=== PATIENT | male | born 1960 | race Caucasian/White ===

== ENCOUNTER → 2019-10-30 15:42 | Outpatient (CLI) | payer SELFPAY ==
[2019-10-30 14:51] VITALS: BMI 26.7
--- NOTE | 2019-10-30 15:46 | CDU_ITS ---
Reason For Study: Carotid stenosis Rt. Velocities/BP Lt. Velocities/BP Prox CCA 141.2/9.4 cm/sec. Prox CCA 106.7/40.8 cm/sec. Mid CCA 67.9/11.4 cm/sec. Mid CCA 100.1/36.4 cm/sec. Dist CCA 58.1/10.2 cm/sec. Dist CCA 83.3/32.1 cm/sec. Prox ECA 194.9/23.6 cm/sec. Prox ICA 312.2/92.6 cm/sec. Rt. Vert. 85.4/21.7 cm/sec. Mid ICA 397.4/112.1 cm/sec. Dist ICA 189.4/40.7 cm/sec. Lt. ICA/CCA = 4.00. Prox ECA 179.1/38.6 cm/sec. Right Extracranial There is heterogeneous, smooth atherosclerotic plaque noted in the right common carotid artery. The right internal carotid artery is occluded. There is heterogeneous, irregular atherosclerotic plaque noted in the right external carotid artery. Antegrade flow is noted in the right vertebral artery. Left Extracranial There is heterogeneous, irregular atherosclerotic plaque noted in the left common carotid artery. There is heterogeneous, irregular atherosclerotic plaque noted in the left internal carotid artery. There is heterogeneous, irregular atherosclerotic plaque noted in the left external carotid artery. Flow could not be demonstrated in the left vertebral artery. Procedure Carotid Duplex 11287. Prelim to [place]. Exam performed in department. Interpretation Summary Flow could not be demonstrated in the left vertebral artery. Occluded right internal carotid artery Less than 50% stenosis right external carotid artery but close to that range Patent and antegrade right vertebral Irregular calcific plaque with shadowing distal left common carotid and proximal left internal and external carotid arteries >70% stenosis left internal carotid (findings consistent with critical stenosis) <50% stenosis left external carotid Ordering Physician: Holden Wyatt Referring Physician: Holden Hudson Performed By: Leyda Brito RVT
--- NOTE | 2019-10-30 16:58 | CT_ITS ---
STUDY: CTA NECK WITH CONTRAST REASON FOR EXAM: Male, 59 years old. BILATERAL CAROTID STENOSIS RADIATION DOSAGE (If Supplied By Facility): CTDIvol = ( 17.90 ) mGy, DLP = ( 632.65 ) mGycm TECHNIQUE: CT angiography with multi-detector data acquisition was performed from the aortic arch to the skull base following intravenous administration of 100 ML ISOVUE 370. MIP images were reconstructed from the axial data set. Post-processing of the angiographic images was performed, with multiplanar reformation and 3D reconstruction. Individualized dose optimization techniques were used for this CT. COMPARISON: None. FINDINGS: AORTIC ARCH: Normal visualized aortic arch. Normal origins of the brachiocephalic, left common carotid, and left subclavian arteries. RIGHT CAROTID ARTERIES: There is atherosclerotic plaque formation of the common carotid artery, with diffuse narrowing of the common carotid artery. There is extensive atherosclerotic plaque formation with severe narrowing of the right carotid bulb . There is complete occlusion of the origin of the right internal carotid artery without demonstrated arterial flow. No flow is seen in the right internal carotid artery. Normal origin of the right external carotid artery (ECA). LEFT CAROTID ARTERIES: Normal left common carotid artery (CCA). There is extensive atherosclerotic plaque formation with moderate narrowing of the carotid bulb with a hemodynamically significant stenosis. There is moderate atherosclerotic plaque formation of the origin of the left internal carotid artery with an estimated stenosis of 50-69% stenosis. Normal visualized cervical portion of the left internal carotid artery. Normal origin of the left external carotid artery (ECA). VERTEBRAL ARTERIES: Both vertebral arteries are small and narrow, especially the left. CT/CTA Neck W/WO Contrast IMPRESSION: Severe right carotid bulb plaque with occlusion of the right ICA. Moderate calcified plaque of the left carotid bulb with moderate grade stenosis of the left ICA. Electronically Signed: Kash Mckee MD at 18:21 EST , Service support ,
[2019-10-30 17:13] LABS: Hematocrit 47.9 % (40-54); Hemoglobin 15.7 g/dL (13.0-16.5); Mean Corp Hgb Conc 32.8 g/dL (32-36); Mean Corpuscular Hgb 28.3 pg (27.0-32.0); Mean Corpuscular Volume 86.3 fL (80-94); Mean Platelet Vol. 8.3 fl (6.2-12.0); Platelet Count 306 K/mm3 (150-450); RBC Distribution Width CV 13.8 % (11.6-14.6); RBC Distribution Width SD 43.5 fl (35.1-43.9); Red Blood Count 5.55 M/mm3 (4.6-6.2); White Blood Count 11.1 K/mm3 (4.4-11.0)
[2019-10-30 17:33] LABS: International Normalized Ratio 1.9; Prothrombin Time (Protime)PT. 21.9 SECONDS (11.7-14.9)
[2019-10-30 17:40] LABS: ALB/GLOB Ratio 0.9 RATIO (0.9-2.4); AST(SGOT) 21 U/L (15-37); Alanine Aminotransfer ALT/SGPT 36 U/L (16-61); Albumin, Serum 3.6 g/dL (3.2-5.0); Alkaline Phosphatase 101 U/L (45-117); Anion Gap 3 (5-15); BUN 16 mg/dL (7-18); BUN/Creat Ratio 13.3 RATIO (10-20); Calcium,Total 9.1 mg/dL (8.5-10.1); Chloride 105 mmol/L (98-107); EST Glomerular Filtration Rate 65 mL/min (>60); Est Glom Filt Rate - Afr Amer 79 mL/min (>60); Globulin 3.9 g/dL (2.2-4.2); Glucose 137 mg/dL (74-106); Potassium 3.9 mmol/L (3.5-5.1); Protein, Total 7.5 g/dL (6.4-8.2); Sodium Level 137 mmol/L (136-145)
[2019-10-30 17:40] LABS: CREATININE FINGERSTICK 1.6 mg/dL (0.70-1.30)
[2019-10-30 17:58] LABS: Hemoglobin A1c 6.6 % (4.2-6.3)
== END ==
PROVIDERS: PCP Family Medicine; Referring Provider Surgery; Visit Provider Surgery
DX: I65.23 Occlusion and stenosis of bilateral carotid arteries (principal); K62.5 Hemorrhage of anus and rectum; K62.89 Other specified diseases of anus and rectum; E11.9 Type 2 diabetes mellitus without complications
CPT/HCPCS: 36415; 70498; 80053; 83036; 85027; 85610; 93880; Q9967

== ENCOUNTER 2019-11-13 08:30 | Day surgery (SDC) | payer SELFPAY ==
--- NOTE | 2019-10-30 04:27 | HP_ITS ---
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 Accompanied by: Is patient in pain?: No Allergies No Known Allergies Allergy (Unverified 10/30/19 14:53) Medications lisinopril 10 mg tablet 10 mg PO DAILY 10/30/19 [History Confirmed 10/30/19] warfarin 5 mg tablet 5 mg PO Q OTHER DAY 10/30/19 [History Confirmed 10/30/19] warfarin 7.5 mg tablet 7.5 mg PO Q OTHER DAY 10/30/19 [History Confirmed 10/30/19] [facility] Medical History Arthritis (Acute) Carotid stenosis (Acute) Diabetes (Acute) Rectal bleeding (Acute) Rectal pain (Acute) Hypertension (Chronic) Surgical History (Updated 10/30/19 @ 14:50 by Hetal Braxton) No history of previous surgery (Acute) Family History (Updated 10/30/19 @ 14:50 by Hetal Braxton) Mother Breast cancer Social History (Updated 10/30/19 @ 16:27 by Holden Wyatt MD) Smoking Status: Current every day smoker alcohol intake: never substance use type: does not use HPI HPI HPI: SILVINA GIL, is a 59 M who presents to the office today for HPI HPI Surgical H&P: Yes HPI: SILVINA GIL is a 59 M who presents to the office today for surgical consultation regarding a least a 1 year history of anal rectal pain and bleeding. The patient is referred by Dr. Holden Hudson and a written copy of my surgical consult and recommendations will be returned to him. Dr. Hudson was able to evaluate the patient and did not demonstrate any external hemorrhoids but thought that there was a large rectal polyp on digital exam. The patient has never had a colonoscopy. He has been medically noncompliant. He states that 10-15 maybe even 20 years ago he was seen by back vascular specialist at [facility] regarding occlusion of his left internal carotid artery and acute vision loss on the left. By report he was placed on Coumadin at that time. He is not had any follow-up according to him since that episode. He claims that his carotid occlusion was secondary to trauma neck injury. He has been a lifelong tobacco smoker at the rate of 1-1/2 pack/day. He denies myocardial infarction. He denies stroke. He has had weight loss recently. He claims that he has been having lower abdominal pain cramping and significant pain with defecation. Because of this he is cut down on eating. He has lost approximately 20 pounds in weight. He is type II diabetic. He himself has taken him off of metformin. He claims that he is still checking his blood sugars intermittently and he runs about 130. He claims that a recent hemoglobin A1c was approximately 6. He denies family history of colon polyps or colon cancer. His problem list includes atherosclerotic cardiovascular disease. He denies myocardial infarction. He is aware that he has a heart murmur but he does not recall ever having an echocardiogram. He has not had a cardiac stress test to his knowledge. ROS General General: Yes weight change and fatigue; no appetite, colon cancer, breast cancer or weakness HEENT HEENT: No difficulty swallowing, eye injury, eye surgery, swollen glands or hoarseness Endo Endocrine: Yes diabetes mellitus; no thyroid disease, thyroid cancer, Hair loss, heat intolerance or cold intolerance Skin Skin: No rash or changing moles Breast Breast: No left breast lump, right breast lump, nipple discharge, breast pain, abnormal mammogram, abnormal US or breast enlargement Musc Musculoskeletal: Yes arthritis; no back problems, rheumatoid arthritis, gout or joint pain Cardio Cardiovascular: Yes murmur and high blood pressure; no pacemaker, heart disease, atrial fibrillation, heart attack, heart stent, palpitations, shortness of breat with exertion or chest pain Psych Psychiatric: No depression, anxiety or hearing voices Resp Respiratory: No shortness of breath, No sleep apnea, Yes cough, No COPD, No asthma, No emphysema, No wheezing Gastro Gastrointestinal: Yes abdominal pain, No nausea or vomiting, No diarrhea, No constipation, Yes blood in stool, No acid reflux, No hemorrhoids, No ulcers, No gallbladder problem, No black,tarry stools Noé Hematologic: Yes blood thinners, No blood disorders, No bleeding, No anemia, No blood clots Neuro Neurologic: No system reviewed and no additional complaints, except as docu, No as per HPI, No abnormal walking, No abnormal hearing, No abnormal movements, No abnormal speech, No behavioral changes, No burning sensations, No confusion, No seizure-like activity, No unsteadiness, No dizziness, No localized weakness, No frequent falls, No headache(s), No lack of coordination, No loss of vision, No memory loss, No numbness, No other visual disturbances, No radiating pain, No restless legs, No sensory deficit, No fainting, No tingling, No tremor(s), No weakness, No other Exam Const General: comfortable, no acute distress Nutritional Appearance: average body habitus Orientation: alert, awake Other: Patient appears to be much older than stated age, Heavy odor of tobacco Heavy staining of tobacco on his glynn HENMT Head: normal to inspection Neck Other: 2+ right carotid. 1+ left carotid. I do not detect bruit. Bilateral radial and brachials are 3+ Chest Breast Palpation: No nipple discharge Resp Other: Clear apices bilaterally, diminished respiratory excursion Cardio Rate: regular rate Rhythm: regular rhythm Heart Sounds: murmur Other: 2/6 systolic ejection murmur GI Other: Soft, distended, bowel sounds present nonspecific, minimal tenderness to deep palpation left lower quadrant, no mass, no guarding, not expansile or pulsatile, no bruits noted Musc Cervical Spine: other (Cervical kyphosis) Skin Other: No open wounds noted Neuro Cognition: normal cognition Extrem General: no calf tenderness bilaterally Psych Affect: normal affect Assessment & Plan Problems 1. Carotid occlusion, right I65.21 2. Carotid stenosis, left I65.22 3. Rectal bleeding K62.5 4. Tobacco abuse Z72.0 5. Type 2 diabetes mellitus E11.9 6. Anticoagulated on Coumadin Z79.01 7. Heart murmur R01.1 Plan My initial plan was to obtain carotid duplex imaging based upon his history and risk. I then proposed for him a colonoscopy with possible biopsy or polypectomy is indicated. By report he has a polypoid rectal mass. I did not perform a rectal exam today as a would perform that during the colonoscopy. I tentatively was going to hold the patient's Coumadin for 3 days prior to intervention performed the procedure with monitored anesthesia care. I did advise him that we would want to obtain carotid duplex imaging preprocedure. Pending the results of the colonoscopy I would then advise whether his cardiac murmur would need to have preoperative evaluation with echocardiogram. Subsequent to the patient's office visit today we did pursue carotid duplex imaging. Preliminary report suggests complete occlusion of the right carotid and greater than 80% stenosis of the left internal carotid. This report will be interpreted later today. Based upon this information he will not have his Coumadin stopped at this time. He will have his colonoscopy which was tentatively scheduled for November 03 canceled at this time. We will check his laboratory including a complete metabolic profile and a CBC and an INR and hemoglobin A1c. If his renal function permits we will proceed with a CTA of the carotids. The patient then will be offered the opportunity to return to [facility] where he had his initial consultation or pending the findings of the CTA may potentially offer him surgical intervention with a left carotid endarterectomy locally. Unfortunately this now supersedes his rectal findings. I appreciate the opportunity of assisting with his surgical care. We will try to assist with additional diagnosis and treatment recommendations as possible. Cc: Dr. Holden Wyatt M.D., F.A.C.S. Orders Orders: Colonoscopy Today K62.5, K62.89 Comprehensive Metabolic Profil Today E11.9, K62.89 Hemoglobin A1c Today E11.9 Prothrombin Time w/INR Today I65.23 CBC-Complete Blood Cnt No Diff Today K62.5 Carotid Duplex Ultrasound Today I65.23 CTA Neck W/WO Contrast Today I65.21, I65.22 Coding Level of Care Code 91287 Diagnoses Carotid occlusion, right I65.21 Carotid stenosis, left I65.22 Rectal bleeding K62.5 Tobacco abuse Z72.0 Type 2 diabetes mellitus E11.9 ??Diabetes mellitus skilled nursing insulin use: without medical terminologist use Anticoagulated on Coumadin Z79.01 Heart murmur R01.1 10/30/19 1627 <Electronically signed by Holden soto MD> Date _ Holden Wyatt MD
[2019-10-30 14:51] VITALS: BMI 26.7
[2019-11-13] VITALS (9 sets, daily range): BP systolic 100–134; BP diastolic 70–81; PULSE 63–83; RESP 16–18; TEMP 36.4–36.9; O2SAT 94–100; BMI 26.1
[2019-11-13 09:01] LABS: Prothrombin Time Fingerstick 16.1 SEC (11.9-14.4)
[2019-11-13] MEDS: Lactated Ringers 1,000 ML 100 ML IV (09:16)
[2019-11-13 09:30] LABS: Bedside Glucose 133 mg/dL (70-110)
--- NOTE | 2019-11-13 10:28 | OP.CCLET_ITS ---
11/13/2019 [address]en Hudson [address] [address] Re : Colonoscopy procedure for Kendrick Butt Dear Dr. Hudson This procedure was performed on Wednesday, November 13, 2019. My impressions and recommendations are as follows: Impressions : - Non-thrombosed internal hemorrhoids and internal hemorrhoids that prolapse with straining, but require manual replacement into the anal canal (Grade III) found on digital rectal exam. Small hemorrhoidal stalk that can be partially prolapsed, non bleeding and not source of bleeding or weight loss - Diverticulosis in the sigmoid colon and in the descending colon. - The examination was otherwise normal. - No specimens collected. Recommendations : - Discharge patient to home. - Resume previous diet. - Continue present medications. - Repeat colonoscopy in 10 years for screening purposes. - Return to my office in 1 week to discuss carotid and treatment plans My findings are described in the full procedure note, which is enclosed. If I can be of further assistance, please feel free to contact me at Doctor phone number(s): Work: . Sincerely, Holden Wyatt MD 11/13/2019 10:27:53 AM This report has been signed electronically.
--- NOTE | 2019-11-13 10:28 | OP.COLON_ITS ---
Patient Name: Kendrick Butt Procedure Date: 11/13/2019 9:58 AM Date of : 1960 Age: 59 Procedure: Colonoscopy Indications: Rectal bleeding Providers: Holden Wyatt MD Referring MD: Holden Hudson Medicines: See the Anesthesia note for documentation of the administered medications Patient Profile: Last Colonoscopy: none. The patient's first colonoscopy is today. Complications: No immediate complications. Procedure: Pre-Anesthesia Assessment: - Prior to the procedure, a History and Physical was performed, and patient medications and allergies were reviewed. The patient's tolerance of previous anesthesia was also reviewed. The risks and benefits of the procedure and the sedation options and risks were discussed with the patient. All questions were answered, and informed consent was obtained. Prior Anticoagulants: The patient has taken Coumadin (warfarin), last dose was 3 days prior to procedure. ASA Grade Assessment: III - A patient with severe systemic disease. After reviewing the risks and benefits, the patient was deemed in satisfactory condition to undergo the procedure. After I obtained informed consent, the scope was passed under direct vision. Throughout the procedure, the patient's blood pressure, pulse, and oxygen saturations were monitored continuously. The Colonoscope was introduced through the anus and advanced to the cecum, identified by appendiceal orifice and ileocecal valve. The colonoscopy was performed without difficulty. The patient tolerated the procedure well. The quality of the bowel preparation was good. The ileocecal valve and the appendiceal orifice were photographed. Scope In: 10:05:47 AM Scope Withdrawal Time 0 hours 6 minutes 17 seconds Scope Out: 10:19:10 AM Total Procedure Duration Time 0 hours 13 minutes 23 seconds Findings: The digital rectal exam findings include non-thrombosed internal hemorrhoids and internal hemorrhoids that prolapse with straining, but require manual replacement into the anal canal (Grade III). Scattered diverticula were found in the sigmoid colon and descending colon. The exam was otherwise without abnormality. Impression: - Non-thrombosed internal hemorrhoids and internal hemorrhoids that prolapse with straining, but require manual replacement into the anal canal (Grade III) found on digital rectal exam. Small hemorrhoidal stalk that can be partially prolapsed, non bleeding and not source of bleeding or weight loss - Diverticulosis in the sigmoid colon and in the descending colon. - The examination was otherwise normal. - No specimens collected. Recommendation: - Discharge patient to home. - Resume previous diet. - Continue present medications. - Repeat colonoscopy in 10 years for screening purposes. - Return to my office in 1 week to discuss carotid and treatment plans Procedure Code(s): --- Professional --- 20970, Colonoscopy, flexible; diagnostic, including collection of specimen(s) by brushing or washing, when performed (separate procedure) Diagnosis Code(s): --- Professional --- K64.2, Third degree hemorrhoids K62.5, Hemorrhage of anus and rectum K57.30, Diverticulosis of large intestine without perforation or abscess without bleeding CPT copyright 2017 [employer]. All rights reserved. The codes documented in this report are preliminary and upon risk reduction counselor review may be revised to meet current compliance requirements. Holden Wyatt MD 11/13/2019 10:27:53 AM This report has been signed electronically. Number of Addenda: 0 Note Initiated On: 11/13/2019 9:58 AM
== END 2019-11-13 11:07 | disposition home or self-care (01) ==
LOC: EN 08:42 → AC 08:52
PROVIDERS: PCP Family Medicine; Referring Provider Family Medicine; Visit Provider Surgery
PROC: 0DJD8ZZ Inspection of Lower Intestinal Tract, Via Natural or Artificial Opening Endoscopic (ICD-10-PCS; CPT 45378; principal; 2019-11-13 09:40)
DX: K64.2 Third degree hemorrhoids (principal); K62.5 Hemorrhage of anus and rectum; K57.30 Diverticulosis of large intestine without perforation or abscess without bleeding; I25.10 Atherosclerotic heart disease of native coronary artery without angina pectoris; I65.23 Occlusion and stenosis of bilateral carotid arteries; I10 Essential (primary) hypertension; E11.9 Type 2 diabetes mellitus without complications; R01.1 Cardiac murmur, unspecified; F17.200 Nicotine dependence, unspecified, uncomplicated; Z79.01 Long term (current) use of anticoagulants; Z91.19 Patient's noncompliance with other medical treatment and regimen
CPT/HCPCS: 45378; 36416; 82962; 85610; J7120; J2405

== ENCOUNTER → 2020-04-07 13:00 | Outpatient (CLI) | payer SELFPAY ==
[2020-03-29 13:14] VITALS: BMI 26.4
--- NOTE | 2020-04-07 13:01 | CDU_ITS ---
Reason For Study: Carotid stenosis Rt. Velocities/BP Lt. Velocities/BP Prox CCA 110.1 cm/sec. Prox CCA 98.6/32.3 cm/sec. Mid CCA 65.2/10.2 cm/sec. Mid CCA 96.2/33.5 cm/sec. Dist CCA 46.5/10.2 cm/sec. Dist CCA 79/23.7 cm/sec. Prox ECA 160.9/9.4 cm/sec. Prox ICA 299.3/99.2 cm/sec. Rt. Vert. 51.3/14.5 cm/sec. Mid ICA 362/95.3 cm/sec. Dist ICA 246.8/83.7 cm/sec. Lt. ICA/CCA = 3.76. Prox ECA 187.3/47.4 cm/sec. Lt. Vert. 913/24.9 cm/sec. Right Extracranial There is homogeneous, smooth atherosclerotic plaque noted in the right common carotid artery. The right internal carotid artery is occluded. There is heterogeneous, irregular atherosclerotic plaque noted in the right external carotid artery. Antegrade flow is noted in the right vertebral artery. Left Extracranial There is heterogeneous, irregular atherosclerotic plaque noted in the left common carotid artery. There is heterogeneous, irregular atherosclerotic plaque noted in the left internal carotid artery. There is intimal thickening but no significant atherosclerotic plaque noted in the left external carotid artery. Antegrade flow is noted in the left vertebral artery. Procedure Carotid Duplex 41991. Exam performed in department. Interpretation Summary Chronic occlusion right internal carotid artery <50% stenosis right external carotid >70% stenosis left internal carotid <50% stenosis left external carotid Patent and antegrade bilateral vertebral arteries with increased velocity on the left at 91.3 cm/s peak systolic flow Findings appear similar to the previous examination of October 30, 2019 Ordering Physician: Holden Wyatt Referring Physician: Holden Hudson Performed By: Willinger, Leyda, RVT
== END ==
PROVIDERS: PCP Family Medicine; Referring Provider Surgery; Visit Provider Surgery
DX: I65.23 Occlusion and stenosis of bilateral carotid arteries (principal)
CPT/HCPCS: 93880

== ENCOUNTER → 2020-05-03 10:00 | Outpatient (CLI) | payer SELFPAY ==
[2020-04-26 08:27] VITALS: BMI 26.6
== END ==
PROVIDERS: Anesthesiology; PCP Family Medicine; Referring Provider Surgery; Visit Provider Surgery
DX: Z20.828 Contact with and (suspected) exposure to other viral communicable diseases (principal)
CPT/HCPCS: 87635; 94799; U0003

== ENCOUNTER → 2020-05-03 13:57 | Outpatient (CLI) | payer SELFPAY ==
[2020-04-26 08:27] VITALS: BMI 26.6
--- NOTE | 2020-05-03 13:59 | ECHOD_ITS ---
Reason For Study: MURMUR Procedure This was a 2D Doppler, Color Flow transthoracic echocardiogram. Exam performed in department. Left Ventricle Normal LV size. The estimated ejection fraction is 70 %. No evidence for diastolic dysfunction. No regional wall motion abnormalities noted. Right Ventricle Normal RV size. Normal systolic function. Atria Normal left atrium. Normal right atrium. No doppler evidence for ASD. Mitral Valve There is no mitral valve stenosis. No mitral valve insufficiency. Tricuspid Valve There is no tricuspid stenosis. Unable to estimate RV systolic pressure due to inadequate jet, pulmonary artery pressure probably normal. No tricuspid valve insufficiency. Aortic Valve Moderate diffuse aortic valve thickening. Moderate aortic stenosis. No aortic valve insufficiency. Pulmonic Valve There is no pulmonic valvular stenosis. No pulmonic valve insufficiency. Great Vessels Normal aortic root. Pericardium/Pleural No pericardial effusion. MMode/2D Measurements & Calculations LVIDd: 4.5 cm IVSd: 1.1 cm LVOT diam: 2.1 cm LVIDs: 2.9 cm LVPWd: 1.3 cm LVOT area: 3.4 cm2 RVDd: 3.0 cm FS: 36.2 % Ao root diam: 3.0 cm LAV(MOD-bp): 48.9 ml LA A4 area: 19.3 cm2 LAV(MOD-bp) Indexed: 22.6 ml/m2 LAV(MOD-sp2): 45.6 ml LAV(MOD-sp4): 52.5 ml LA dimension(2D): 3.8 cm RA A4 area: 12.8 cm2 Time Measurements MV dec time: 0.21 sec Doppler Measurements & Calculations MV E max antoni: 74.4 cm/sec Lat Peak E' Antoni: 8.9 cm/sec Med Peak E' Antoni: 9.6 cm/sec MV A max antoni: 99.7 cm/sec E/E' lat: 8.3 E/E' med: 7.7 MV E/A: 0.75 Ao V2 max: 352.0 cm/sec LV V1 max: 124.9 cm/sec SV(LVOT): 83.1 ml Ao max P.1 mmHg LV V1 max P.2 mmHg Ao V2 mean: 248.5 cm/sec LV V1 mean P.7 mmHg Ao mean P.2 mmHg LV V1 mean: 93.2 cm/sec Ao V2 VTI: 60.3 cm LV V1 VTI: 24.3 cm NU(I,D): 1.4 cm2 NU(V,D): 1.2 cm2 PA V2 max: 156.1 cm/sec PA V2 mean: 124.8 cm/sec PA V2 VTI: 27.6 cm Interpretation Summary The estimated ejection fraction is 70 %. No evidence for diastolic dysfunction. Moderate aortic stenosis. Ordering Physician: Jevon Oliveros Referring Physician: Holden Hudson Performed By: Hetal Cain, PRISCILLA, RVT
--- NOTE | 2020-05-03 14:40 | RAD_ITS ---
STUDY: X-RAY CHEST REASON FOR EXAM: Male, 59 years old. Chest pain. TECHNIQUE: PA and lateral views of the chest. COMPARISON: None. FINDINGS: The lungs are clear and expanded. There is no demonstrated pleural abnormality. Normal size heart. Normal mediastinum and aydee. Normal visualized pulmonary arteries. Normal visualized aortic arch and descending thoracic aorta. There are diffuse degenerative changes of the visualized thoracic spine. There is degenerative osteoarthritis of the bilateral shoulders. There is no demonstrated abnormality of the visualized soft tissue structures of the upper abdomen. RAD/Chest PA and Lateral IMPRESSION: Degenerative changes, as described above. No demonstrated acute cardiopulmonary process. Electronically Signed: Chi Fermin DO at 20:04 EDT Tel [phone], Service support ,
[2020-05-03 15:24] LABS: Hematocrit 47.5 % (40-54); Hemoglobin 15.9 g/dL (13.0-16.5); Mean Corp Hgb Conc 33.5 g/dL (32-36); Mean Corpuscular Hgb 28.8 pg (27.0-32.0); Mean Corpuscular Volume 85.9 fL (80-94); Mean Platelet Vol. 8.3 fl (6.2-12.0); Platelet Count 346 K/mm3 (150-450); RBC Distribution Width CV 13.7 % (11.6-14.6); RBC Distribution Width SD 42.6 fl (35.1-43.9); Red Blood Count 5.53 M/mm3 (4.6-6.2); White Blood Count 11.1 K/mm3 (4.4-11.0)
[2020-05-03 15:58] LABS: Hemoglobin A1c 6.4 % (3.8-5.6)
== END ==
PROVIDERS: Anesthesiology; Surgery; PCP Family Medicine; Referring Provider Specialist; Visit Provider Specialist
DX: R01.1 Cardiac murmur, unspecified (principal); I25.10 Atherosclerotic heart disease of native coronary artery without angina pectoris; I10 Essential (primary) hypertension; E78.5 Hyperlipidemia, unspecified; R07.9 Chest pain, unspecified
CPT/HCPCS: 36415; 71046; 83036; 85027; 93306

== ENCOUNTER 2020-05-05 08:33 | Day surgery (SDC) | payer SELFPAY ==
[2020-04-26 08:27] VITALS: BMI 26.6
[2020-04-26 17:07] LABS: Absolute Neutrophil Count 6.3 X10^3/uL (2.0-7.7); Basophil# 0.05 X10^3/uL; Basophil% 0.4 % (0-1); Eosinophil# 0.46 X10^3/uL; Eosinophils% 4.1 % (0-5); Hematocrit 48.4 % (40-54); Hemoglobin 15.8 g/dL (13.0-16.5); Lymphocyte % 32.7 % (19-41); Mean Corp Hgb Conc 32.6 g/dL (32-36); Mean Corpuscular Hgb 28.1 pg (27.0-32.0); Mean Corpuscular Volume 86.1 fL (80-94); Mean Platelet Vol. 8.4 fl (6.2-12.0); Monocyte# 0.73 X10^3/uL; Monocyte% 6.4 % (0-10); NRBC Flagged by Analyzer 0 % (0-5); Neutrophil # 6.31 X10^3/uL (2.7-7.7); Neutrophil % 55.8 % (47-70); Platelet Count 331 K/mm3 (150-450); RBC Distribution Width CV 13.7 % (11.6-14.6); RBC Distribution Width SD 42.9 fl (35.1-43.9); Red Blood Count 5.62 M/mm3 (4.6-6.2); White Blood Count 11.3 K/mm3 (4.4-11.0)
[2020-04-26 17:14] LABS: International Normalized Ratio 2.6; Partial Thromboplast Time 52.5 Seconds (24.1-36.2); Prothrombin Time (Protime)PT. 27.2 SECONDS (11.7-14.9)
[2020-04-26 18:05] LABS: Anion Gap 5 (5-15); BUN 17 mg/dL (7-18); BUN/Creat Ratio 15.9 RATIO (10-20); Calcium,Total 9.4 mg/dL (8.5-10.1); Chloride 106 mmol/L (98-107); Creatinine, Serum 1.07 mg/dL (0.70-1.30); EST Glomerular Filtration Rate 75 mL/min (>60); Est Glom Filt Rate - Afr Amer 90 mL/min (>60); Glucose 107 mg/dL (74-106); Potassium 4.4 mmol/L (3.5-5.1); Sodium Level 137 mmol/L (136-145)
[2020-05-04 08:55] VITALS: BMI 26.6
[2020-05-05 08:50] LABS: Prothrombin Time Fingerstick 14.2 SEC (11.9-14.4)
--- NOTE | 2020-05-05 11:24 | CL.D_ITS ---
Patient Name: SILVINA GIL Study Date: 05/05/2020 Performing: Ayaka Oliveros MD Ht: 72.83 inches 185 cm : 1960 Wt: 202.83 lbs 92 kg Age: 59 Gender: male BSA: 2.16 PROCEDURE(S) PERFORMED TF66-MHD/COR CLINICAL PROFILE AND INDICATIONS Indications: Suspected CAD Heart Failure: None Stress/Imaging Stress/Image Study Performed: No CAD Presentations: Stable angina. CONCLUSIONS Multivessel CAD. Known moderate . RECOMMENDATIONS CT surgery consult to discuss revascularization options. DESCRIPTION OF PROCEDURE The patient arrived to the procedure lab. The risks and benefits of the procedure as well as a full d escription of our services here and current unavailability of surgical backup were fully explained to the patient and/or their significant other prior to the catheterization. The Timeout was completed, verifying the correct patient and procedure. The patient's procedural site was prepped and draped in the usual fashion. Local anesthetic was given subcutaneously to right radial region with Lidocaine 2% . Using a modified Seldinger technique, arterial access was obtained via the right radial artery, a 6 Fr sheath was inserted. Left Coronary Artery selective angiography was performed in multiple views u sing a 5 Fr. JL3.5 catheter. Right Coronary Artery selective angiography was then performed in multip le views using a 5 Fr. JR 4 catheter.The arterial sheath was pulled and a TR Band was applied for hem ostasis 14cc air CORONARY ANGIOGRAPHY DOMINANCE: Right Dominant LEFT HEART ASSESSMENT Left Ventricular Ejection Fraction: Not assessed. Pt. had EF of 70% by recent echo and moderate on echo with a mean gradient of 27mmHg. The aortic valve was not crossed LEFT MAIN: Mild luminal irregularities LEFT ANTERIOR DESCENDING ARTERY: OSTIAL LAD: 70 % Stenosis. Long lesion in the proximal LAD extending upto the ostium of the LAD DIAGONAL 1: Ostial - 80-90 % Stenosis CIRCUMFLEX ARTERY: OSTIAL CIRC: 80 % Stenosis. Proximal LCx lesion extending upto the ostium. There is a 70% stenosis in the mid to distal LCx as well. OM 1: Proximal - 80 % Stenosis RIGHT CORONARY ARTERY: MID RCA: 80 % Stenosis, 70 % Stenosis COMPLICATIONS No Complications PROCEDURE MEDICATIONS Fentanyl 50 mcg IV Versed 1 mg IV Oxygen: 2 L/min via nasal cannula Heparin given IA 05/05/2020 10:21:20 Verapamil 2.5mg, Ntg 100mcgs, 3000 units of Heparin given IA 05/05/2020 10:21:20 SUMMARY OF HEMODYNAMIC DATA Time AIR REST ECG 09:00:42 AO 108/64 (83) SA 10:23:54 ECG 10:48:02 Signed By Ayaka Oliveros MD On 05/05/2020 11:24:03 Ayaka Oliveros MD
== END 2020-05-05 12:25 | disposition home or self-care (01) ==
PROVIDERS: PCP Family Medicine; Referring Provider Specialist; Visit Provider Specialist
DX: Z01.810 Encounter for preprocedural cardiovascular examination (principal); I25.118 Atherosclerotic heart disease of native coronary artery with other forms of angina pectoris; I65.23 Occlusion and stenosis of bilateral carotid arteries; I73.9 Peripheral vascular disease, unspecified; I10 Essential (primary) hypertension; R01.1 Cardiac murmur, unspecified; R07.9 Chest pain, unspecified; E11.9 Type 2 diabetes mellitus without complications; E78.5 Hyperlipidemia, unspecified; M19.90 Unspecified osteoarthritis, unspecified site; F17.200 Nicotine dependence, unspecified, uncomplicated; Z79.01 Long term (current) use of anticoagulants; Z79.899 Other long term (current) drug therapy
CPT/HCPCS: 36415; 36416; 80048; 85025; 85610; 85730; 93454; 99152; 99153; J7040; C1769; C1894; Q9967